=== PATIENT | female | born 1960 | race African-American/Black ===

== ENCOUNTER 2016-11-20 09:54 | Emergency (ER) | payer OTHER ==
[~2016-11-20] VITALS: Ht 149.9 cm; Wt 57.2 kg
[~2016-11-20 09:54] MED LIST: ASPI-1093 PO; BUPR100 PO; CLOP75 PO; FAMO20 PO; GABA-529 PO; HYDR25TA PO
[2016-11-20] MEDS ORDERED: IBUP-1547 PO (10:11)
[2016-11-20] MEDS ORDERED: AMOX250C4 PO (10:11)
[2016-11-20] MEDS ORDERED: DSS100 PO (10:11)
[2016-11-20] MEDS ORDERED: ATOR40TA28 PO (10:11)
[2016-11-20] MEDS ORDERED: MULT-1259 PO (10:11)
[2016-11-20] MEDS ORDERED: FAMO20 PO (10:11)
[2016-11-20] MEDS ORDERED: HYDROCODONE/ACETAMINOPHEN 5-325 MG TABLET PO ONE (11:15)
[2016-11-20 11:57] VITALS: BP 163/99
== END 2016-11-20 12:00 | disposition home or self-care (01) ==
LOC: EMS 09:56
DX: K02.9 Dental caries, unspecified (principal); K21.9 Gastro-esophageal reflux disease without esophagitis; E78.00 Pure hypercholesterolemia, unspecified; I10 Essential (primary) hypertension
CPT/HCPCS: 99283